=== PATIENT | female | born 1995 | race Caucasian/White ===

== ENCOUNTER 2016-08-16 19:21 | Emergency (ER) | payer BC ==
[2016-08-16 20:14] VITALS: BP 153/104
--- NOTE | 2016-08-16 20:43 | UC ---
Abdominal Pain Female HPI - HPI Summary HPI Summary: The patient comes in today for: 1. Epigastric abdominal pain: Onset: 20 hours ago. Palliative/provocative: Nothing makes the pain better or worse except movement ( walking) Quality: Sharp, Region: Epigastric area with radiation to the back. Severity: 10/10 but she is not crying. Time: Constant. Associated symptoms: Previous treatment: She has tried [place] and Tums neither which helped. Fevers: None. Vomiting: This morning about 10 times. She last vomited about noon of today. Diarrhea: None. Last bowel movement: 7 hours ago--Green/black color, She states that it was melanotic. Urination: She states that she feels like she has to urinate more often. Previous GI disease: none. * - History of Current Complaint Chief Complaint: UCGI Stated Complaint: STOMACH PAIN Time Seen by Provider: 08/16/16 20:37 Hx Obtained From: Patient Hx Last Menstrual Period: 08/10/16 ?: No Allergies/Adverse Reactions: Allergies Allergy/AdvReac Type Severity Reaction Status Date / Time No Known Allergies Allergy Verified 08/16/16 20:14 Home Medications: Home Medications NK [No Home Medications Reported] 08/16/16 [History Confirmed 08/16/16] PMH/Surg Hx/FS Hx/Imm Hx Previously Healthy: Yes Endocrine History Of: Denies: Diabetes, Thyroid Disease, Hyperthyroidism, Hypothyroidism, Dyslipidemia Cardiovascular History Of: Reports: Hypertension - She states she has a history of elevated blood pressure, but sees no DrVivienne Denies: Cardiac Disorders, Pacemaker/ICD, Myocardial Infarction, Congestive Heart Failure, Atrial Fibrillation, Deep Vein Thrombosis, Bleeding Disorders Respiratory History Of: Denies: COPD, Asthma, Bronchitis, Pneumonia, Pulmonary Embolism GI/ History Of: Denies: Gastroesophageal Reflux, Ulcer, Gastrointestinal Bleed, Gall Bladder Disease, Kidney Stones, Diverticulitis, Renal Disease, Urosepsis Neurological History Of: Denies: TIA, CVA, Dementia, Seizures, Migraine Psychological History Of: Denies: Anxiety, Depression, Bipolar Disorder, Schizophrenia, Post Traumatic Stress Disorder Cancer History Of: Denies: Lung Cancer, Colorectal Cancer, Breast Cancer, Prostate Cancer, Cervical Cancer Other History Of: Negative For: HIV, Hepatitis B, Hepatitis C, Anticoagulant Therapy - Surgical History Surgical History: None - Family History Known Family History: Negative: None, Cardiac Disease, Hypertension - Social History Occupation: Employed Full-time Alcohol Use: Occasionally Substance Use Type: None Smoking Status (MU): Current Every Day Smoker Type: Cigarettes Amount Used/How Often: 1/4 PPD Length of Time of Smoking/Using Tobacco: 3 years Have You Smoked in the Last Year: Yes Household Exposure Type: Cigarettes Review of Systems Constitutional: Negative Skin: Negative Eyes: Negative ENT: Negative Respiratory: Negative Cardiovascular: Negative Gastrointestinal: Abdominal Pain, Vomiting Genitourinary: Negative All Other Systems Reviewed And Are Negative: Yes Physical Exam Triage Information Reviewed: Yes Appearance: Well-Appearing - Just, No Pain Distress, Obese Vital Signs: Initial Vital Signs Temp 98.7 F 08/16/16 20:07 Pulse 78 08/16/16 20:07 Resp 20 08/16/16 20:07 BP 153/104 08/16/16 20:07 Pulse Ox 100 08/16/16 20:07 Vital Signs Reviewed: Yes Eyes: Positive: Conjunctiva Clear. Negative: Discharge ENT: Positive: Hearing grossly normal. Negative: Pharyngeal erythema, Nasal congestion, Nasal drainage, TM bulging, TM dull, TM red, Tonsillar swelling, Tonsillar exudate Dental: Negative: Gross Decay/Caries @, Dental Fracture @ Neck: Positive: Supple, Nontender, No Lymphadenopathy. Negative: Nuchal Rigidity Respiratory: Positive: Chest non-tender, Lungs clear, No respiratory distress, No accessory muscle use. Negative: Crackles, Wheezing Cardiovascular: Positive: RRR, No Murmur Abdomen Description: Positive: Soft. Negative: Nontender - She has tenderness of the epigastric area (the worse) but also has pain of the lower right and left quadrant ==this is lesser pain. There is rebound, but the abdominal exam is difficult due to body habitus., Distended, Guarding Musculoskeletal: Positive: Strength Intact, ROM Intact, No Edema Neurological: Positive: Alert, Muscle Tone Normal Psychological: Positive: Age Appropriate Behavior, Consolable Skin: Negative: rashes, breakdown Abd Pain Female Course/Dx - Course Course Of Treatment: Patient was told I think she should go to the Er for further evaluation and she agreed and will go by private car. - Differential Dx/Diagnosis Differential Diagnosis: Constipation, Pancreatitis Provider Diagnoses: Epigastric pain/ rule out pancreatitis - Physician Notification/Consults Discussed Patient Care With: Dr. Dorman Time Discussed With Above Provider: 20:56 Discharge - Discharge Plan Condition: Stable Disposition: AGAINST MEDICAL ADVICE
== END 2016-08-16 21:02 | disposition left against medical advice (07) ==
LOC: UCEAST 19:21
DX: R10.13 Epigastric pain (principal); I10 Essential (primary) hypertension; E66.9 Obesity, unspecified; F17.210 Nicotine dependence, cigarettes, uncomplicated
CPT/HCPCS: 81003; 99212; G0463

== ENCOUNTER 2016-08-16 22:24 | Emergency (ER) | payer BC ==
[2016-08-16] MEDS ORDERED: NS 0.9% 1000 ML* 1,000 ML IV ONE (23:51)
[2016-08-16] MEDS ORDERED: Ondansetron INJ* 2 MG/ML VIAL IV ONE (23:51)
[2016-08-16] MEDS ORDERED: Morphine INJ* 4 MG/ML 1 ML SYRINGE IV ONE (23:51)
[2016-08-16] MEDS ORDERED: Pantoprazole IV* 40 MG IV ONE (23:52)
[2016-08-17 00:07] LABS: Hematocrit 42 % (35-47); Hemoglobin 13.5 g/dl (12.0-16.0); Mean Corpuscular HGB Conc 32 g/dl (31-36); Mean Corpuscular Hemoglobin 26 pg (27-31); Mean Corpuscular Volume 80 fL (80-97); Mean Platelet Volume 9 um3 (7.4-10.4); Red Cell Distribution Width 14 % (10.5-15)
[2016-08-17 00:19] LABS: Albumin 4.4 g/dL (3.2-5.2); C Reactive Protein 64.54 mg/L (< 5.00); Calcium 9.5 mg/dL (8.6-10.3); EGFR African American 119.5 (>60); EGFR Non-African American 92.9 (>60); Globulin 3.5 g/dL (2-4); Magnesium 1.8 mg/dL (1.9-2.7); Potassium 3.7 mmol/L (3.5-5.0); Total Bilirubin 1.4 mg/dL (0.2-1.0); Total Protein 7.9 g/dL (6.4-8.9)
[2016-08-17 00:21] LABS: Urine Bacteria Absent (Absent); Urine Bilirubin Negative (Negative); Urine Glucose Negative (Negative); Urine Nitrite Negative (Negative)
[2016-08-17] MEDS ORDERED: cefTRIAXone(*) 1 GM in NS 0.9% 50 ML* 50 ML IVPB ONE (01:12)
[2016-08-17] MEDS ORDERED: cefTRIAXone(*) 1 GM ADVAN ONE (02:22)
[2016-08-17] MEDS ORDERED: Iohexol 300* (CONTRAST) 10 ML SDV IV ONE (02:30)
--- NOTE | 2016-08-17 06:41 | ED ---
Joanna Sloan Janilya, scribed for Henrietta Macedo MD on 08/16/16 at 2308 . Abdominal Pain/Female - HPI Summary HPI Summary: A 21 y/o female [facility] presenting w/ a gradual onset of constant abd pain starting last night. Pt kept waking up with severe abd pain. She has not experienced these Sx before. Severity rated 10/10 when it first started 4/10 severity. Lying down pt feels cramped back pain bilaterally. Pt reports difficulty passing stool, chills, nausea. Pt was seen at [facility] for this CC and was sent here to r/o kidney stone. LNMP 08/05 PMHx HTN - History of Current Complaint Chief Complaint: EDAbdPain Stated Complaint: ABD PAIN/SENT FROM [facility] Time Seen by Provider: 08/16/16 22:58 Hx Obtained From: Patient Hx Last Menstrual Period: 08/10/16 Onset/Duration: Gradual Onset, Lasting Days, Still Present Timing: Constant Severity Initially: Moderate Severity Currently: Moderate Pain Intensity: 10 Pain Scale Used: 0-10 Numeric Location: Diffuse Radiates: No Aggravating Factor(s): Nothing Alleviating Factor(s): Nothing Allergies/Adverse Reactions: Allergies Allergy/AdvReac Type Severity Reaction Status Date / Time No Known Allergies Allergy Verified 08/16/16 22:37 PMH/Surg Hx/FS Hx/Imm Hx Previously Healthy: Yes Endocrine/Hematology History: Denies: Hx Anticoagulant Therapy, Hx Diabetes, Hx Thyroid Disease Cardiovascular History: Reports: Hx Hypertension - She states she has a history of elevated blood pressure, but sees no Denies: Hx Atrial Fibrillation, Hx Congestive Heart Failure, Hx Deep Vein Thrombosis, Hx Myocardial Infarction, Hx Pacemaker/ICD Respiratory History: Denies: Hx Asthma, Hx Chronic Obstructive Pulmonary Disease (COPD), Hx Lung Cancer, Hx Pneumonia, Hx Pulmonary Embolism GI History: Denies: Hx Gall Bladder Disease, Hx Gastroesophageal Reflux Disease, Hx Gastrointestinal Bleed, Hx Ulcer, Hx Urosepsis History: Reports: Other Problems/Disorders - Hx of UTI Denies: Hx Kidney Stones, Hx Renal Disease Musculoskeletal History: Denies: Hx Arthritis, Hx Rheumatoid Arthritis, Hx Back Problems, Hx Bursitis , Hx Congenital Bone Abnormalities, Hx Fibromyalgia, Hx Gout, Hx Orthopedic Injury, Hx Osteoporosis, Hx Scoliosis, Hx Tendonitis, Other Musculoskeletal History Sensory History: Denies: Hx Cataracts, Hx Contacts or Glasses, Hx Eye Injury, Hx Eye Prosthesis, Hx Glaucoma, Hx Legally Blind, Hx Macular Degeneration, Hx Vision Problem, Hx Deafness, Hx Hearing Aid, Hx Hearing Problem, Other Sensory Impairments Opthamlomology History: Denies: Hx Cataracts, Hx Contacts or Glasses, Hx Eye Injury, Hx Eye Prosthesis, Hx Glaucoma, Hx Legally Blind, Hx Macular Degeneration, Hx Vision Problem, Other Sensory Impairments Neurological History: Denies: Hx CVA, Hx Dementia, Hx Developmental Delay, Hx Headaches, Hx Migraine, Hx Nerve Disease, Hx Peripheral Neuropathy, Hx Seizures, Hx Spinal Cord Injury, Hx Transient Ischemic Attacks (TIA), Other Neuro Impairments/ Disorders Psychiatric History: Denies: Hx Anxiety, Hx Attention Deficit Hyperactivity Disorder, Hx Autism, Hx Eating Disorder, Hx Oppositional [place] Disorder, Hx Depression, Hx Panic Disorder, Hx Post Traumatic Stress Disorder, Hx Inpatient Treatment, Hx Community Mental Health Tx, Hx Schizophrenia, Hx Bipolar Disorder, Hx Suicide Attempt, Hx of Violent Episodes Against Others, Hx Substance Abuse, Other Psychiatric Issues/Disorders - Immunization History Date of Tetanus Vaccine: PT STATES UNSURE. Date of Influenza Vaccine: NONE Infectious Disease History: No Infectious Disease History: Denies: Hx Clostridium Difficile, Hx Hepatitis, Hx Human Immunodeficiency Virus (HIV), Hx of Known/Suspected MRSA, Hx Shingles, Hx Tuberculosis, Hx Known/ Suspected VRE, Hx Known/Suspected VRSA, History Other Infectious Disease, Traveled Outside the [place] in Last 30 Days - Family History Known Family History: Positive: Hypertension Negative: None, Cardiac Disease - Social History Alcohol Use: Occasionally Substance Use Type: Reports: None Smoking Status (MU): Current Every Day Smoker Type: Cigarettes Amount Used/How Often: 1/4 PPD Length of Time of Smoking/Using Tobacco: 3 years Have You Smoked in the Last Year: Yes Review of Systems Positive: Chills Positive: Abdominal Pain, Nausea, Other - difficulty passing stool All Other Systems Reviewed And Are Negative: Yes Physical Exam Triage Information Reviewed: Yes Vital Signs On Initial Exam: Initial Vitals Temp Pulse Resp BP Pulse Ox 98.2 F 85 14 156/87 100 08/16/16 22:35 08/16/16 22:35 08/16/16 22:35 08/16/16 22:35 08/16/16 22:35 Vital Signs Reviewed: Yes Appearance: Positive: Well-Appearing, No Pain Distress Skin: Positive: Warm, Skin Color Reflects Adequate Perfusion Eyes: Positive: EOMI, LUIS ENT: Positive: Pharynx normal, TMs normal Neck: Positive: Supple, Nontender Respiratory/Lung Sounds: Positive: Clear to Auscultation, Breath Sounds Present. Negative: Rales, Rhonchi, Wheezes Cardiovascular: Positive: RRR. Negative: Murmur, Rub, Other - no gallops Abdomen Description: Positive: Soft. Negative: Nontender, Distended, Guarding, Other: - No rebound. Tenderness of epigastric region and RUQ. Bowel Sounds: Positive: Present Musculoskeletal: Positive: Strength/ROM Intact. Negative: Edema Left, Edema Right Neurological: Positive: Sensory/Motor Intact, Alert, Oriented to Person Place, Time, CN Intact II-III Psychiatric: Positive: Affect/Mood Appropriate Diagnostics - Vital Signs Vital Signs Temp Pulse Resp BP Pulse Ox 08/16/16 22:35 98.2 F 85 14 156/87 100 - Laboratory Lab Results: Lab Results 08/16/16 08/16/16 08/16/16 Range/Units 23:00 23:00 23:35 WBC 18.0 H (3.5-10.8) 10^3/ul RBC 5.20 (4.0-5.4) 10^6/ul Hgb 13.5 (12.0-16.0) g/dl Hct 42 (35-47) % MCV 80 (80-97) fL MCH 26 L (27-31) pg MCHC 32 (31-36) g/dl RDW 14 (10.5-15) % Plt Count 237 (150-450) 10^3/ul MPV 9 (7.4-10.4) um3 Neut % (Auto) 82.4 (38-83) % Lymph % (Auto) 11.5 L (25-47) % [place] % (Auto) 5.0 (1-9) % Eos % (Auto) 0.9 (0-6) % Baso % (Auto) 0.2 (0-2) % Absolute Neuts (auto) 14.8 H (1.5-7.7) 10^3/ul Absolute Lymphs (auto) 2.1 (1.0-4.8) 10^3/ul Absolute Monos (auto) 0.9 H (0-0.8) 10^3/ul Absolute Eos (auto) 0.2 (0-0.6) 10^3/ul Absolute Basos (auto) 0 (0-0.2) 10^3/ul Absolute Nucleated RBC 0.01 10^3/ul Nucleated RBC % 0 Sodium 136 (133-145) mmol/L Potassium 3.7 (3.5-5.0) mmol/L Chloride 100 L (101-111) mmol/L Carbon Dioxide 24 (22-32) mmol/L Anion Gap 12 H (2-11) mmol/L BUN 10 (6-24) mg/dL Creatinine 0.77 (0.51-0.95) mg/dL Est GFR ( Amer) 119.5 (>60) Est GFR (Non-Af Amer) 92.9 (>60) BUN/Creatinine Ratio 13.0 (8-20) Glucose 108 H (70-100) mg/dL Calcium 9.5 (8.6-10.3) mg/dL Magnesium 1.8 L (1.9-2.7) mg/dL Total Bilirubin 1.40 H (0.2-1.0) mg/dL AST 10 L (13-39) U/L ALT 16 (7-52) U/L Alkaline Phosphatase 95 (34-104) U/L C-Reactive Protein 64.54 H (< 5.00) mg/L Total Protein 7.9 (6.4-8.9) g/dL Albumin 4.4 (3.2-5.2) g/dL Globulin 3.5 (2-4) g/dL Albumin/Globulin Ratio 1.3 (1-3) Lipase 16 (11.0-82.0) U/L Beta HCG, Quant 1.48 mIU/mL Urine Color Yellow Urine Appearance Cloudy Urine pH 6.0 (5-9) Ur Specific [place] 1.012 (1.010-1.030) Urine Protein Negative (Negative) Urine Ketones Negative (Negative) Urine Blood Negative (Negative) Urine Nitrate Negative (Negative) Urine Bilirubin Negative (Negative) Urine Urobilinogen Negative (Negative) Ur Leukocyte Esterase 2+ H (Negative) Urine WBC (Auto) 2+(11-20/hpf) H (Absent) Urine RBC (Auto) 2+(6-10/hpf) H (Absent) Ur Squamous Epith Cells Present H (Absent) Urine Bacteria Absent (Absent) Urine Glucose Negative (Negative) Result Diagrams: 08/16/16 23:00 08/16/16 23:00 Lab Statement: Any lab studies that have been ordered have been reviewed, and results considered in the medical decision making process. - CT abd/pel CT Interpretation: No Acute Changes - No bowel obstrucition, colitis, free fluid or free air. Normal appendix. Unremarkable pancreas, kidneys, and gallbladder. Minimal central mesenteric fat hazziness appearing possibly edema or mesenteritis. CT Interpretation Completed By: Radiologist - Ultrasound No standard instances Ultrasound Interpretation: Positive (See Comments) - Borderline hepatomegaly. Coarse liver echotexture, possibly steatosis. Unremarkable gallbladder and visualized pancreas. Small nonobstucting stones bilateral kidneys. No biliary dilatation. Ultrasound Interpretation Completed By: Radiologist - EKG 2352 Cardiac Rate: NL - 73 bpm EKG Rhythm: Sinus Rhythm ST Segment: Normal Abdominal Pain Fem Course/Dx - Course Course Of Treatment: A 21 y/o female [facility] presenting w/ a gradual onset of constant abd pain starting last night. Pt kept waking up with severe abd pain. She has not experienced these Sx before. Severity rated 10/10 when it first started 4/10 severity. Lying down pt feels cramped back pain bilaterally. Pt reports difficulty passing stool, chills, nausea. Pt was seen at [facility] for this CC and was sent here to r/o kidney stone. wbc of 18k,ua is positive, ct shows mild mesenteric edema treating uti with cipro after dose of ceftriaxone here. Of note pt has been very stable here. LNMP 08/05. PMHx HTN - Diagnoses Provider Diagnoses: Abdominal pain, UTI (urinary tract infection) Discharge - Discharge Plan Condition: Stable Disposition: HOME Prescriptions: Ciprofloxacin TAB* [Cipro 500 MG TAB*] 500 mg PO BID #14 tab Hydrocodone-Acetaminophen [[place] 5-325 mg] 1 tab PO Q6HR #14 tab MDD 4 Ondansetron TAB* [Zofran 4 MG Tab*] 4 mg PO Q6H PRN #14 tab PRN Reason: Nausea Patient Education Materials: Urinary Tract Infection in Women (ED), Abdominal Pain (ED) Referrals: No Primary Care Phys,NOPCP [Primary Care Provider] - The documentation as recorded by the scribe, Baizack,Janilya accurately reflects the service I personally performed and the decisions made by me, Henrietta Macedo MD.
[2016-08-17 06:53] VITALS: BP 146/96
--- NOTE | 2016-08-17 08:39 | RAD ---
Indication: Epigastric pain. Trace blood in urine. Morbid obesity. Comparison: Subsequent August 17, 2016 CT. Technique: RIGHT upper quadrant ultrasound. Report: 17.9 cm cephalocaudal liver is increased in echogenicity consistent with fatty infiltration. No focal hepatic lesions or biliary dilatation. Appropriate direction flow documented in the portal and hepatic veins. 2.7 mm common bile duct. Adequately distended gallbladder with normal 2.2 mm wall is without pathologic finding. The pancreatic tail is largely obscured due to bowel gas with the visualized pancreas unremarkable. Negative for ascites. 10.8 x 5.8 x 4.5 cm RIGHT kidney demonstrates normal cortical echogenicity. No focal renal lesions, definitive stones, or hydronephrosis.. IMPRESSION: 1. Fatty infiltration of the liver. 2. Negative for gallbladder pathology. 3. Negative for RIGHT hydronephrosis.
--- NOTE | 2016-08-17 09:28 | RAD ---
INDICATION: Epigastric pain. Elevated white blood cell count. Previous kidney infection. COMPARISON: RIGHT upper quadrant ultrasound August 16, 2016. March 13, 2015 CT. TECHNIQUE: Multidetector CT images were obtained from the lung bases to the ischial tuberosities with 150 mL Omnipaque 300 IV and oral contrast. Multiplanar reformation. REPORT: Minimal dependent LEFT basilar subsegmental atelectasis. Unremarkable liver, gallbladder, pancreas, spleen. Small splenule approximates the anterior inferior margin of the dominant spleen. Reference axial images 40-46 and coronal images 56-58 there is suggestion of mild mucosal fold thickening at the distal second and proximal third segments of the duodenum. No significant associated perienteric inflammatory change. Negative for resulting obstruction. Negative for CT abnormality of the small bowel, infra cecal appendix, colon. Negative for perienteric inflammatory change, ascites, free air, hernias. Normal adrenal glands. Unremarkable kidneys with symmetric nephrograms and pyelograms. Unremarkable nondilated ureters and the partially distended urinary bladder. Unremarkable anteverted uterus and adnexal regions. Negative for lymphadenopathy. Normal diameter abdominal aorta and iliac arteries. Physiologic distention of the IVC. Negative for suspicious osseous lesions. IMPRESSION: 1. Normal appendix documented. 2. Suggestion of mucosal fold thickening at the second and third segments of the duodenum concerning for potential duodenitis. No discrete ulcer, significant perienteric inflammatory change, or extra enteric gas evident. 3. Negative for obstructive uropathy. Results discussed with charge nurse Ignacio 08/17/2016 8:47 AM EDT
--- NOTE | 2016-08-19 09:02 | PN ---
Progress Note - Progress Note Note: Urine Culture grew Group B strep: Patient placed on Cipro. Cipro appropriate to Group B. Nothing further at this time. Will await sensitivities. Lilia Coreas PA-C
== END 2016-08-17 06:45 | disposition home or self-care (01) ==
LOC: ED 22:24
DX: N39.0 Urinary tract infection, site not specified (principal); R10.9 Unspecified abdominal pain; R11.0 Nausea; F17.210 Nicotine dependence, cigarettes, uncomplicated
CPT/HCPCS: 36415; 74177; 76705; 80053; 81003; 81015; 83690; 83735; 84702; 85025; 86140; 87077; 87086; 93005; 96374; 96375; 99283; J0696; J2270; J2405; Q9967

== ENCOUNTER 2016-08-18 19:07 | Emergency (ER) | payer BC ==
[2016-08-18] MEDS ORDERED: Pantoprazole IV* 80 MG in NS 0.9% 250 ML* 250 ML IVPB ONE (19:35)
[2016-08-18] MEDS ORDERED: Al Hydrox/Mg Hydrox/Simet LIQ* 30 ML UDC PO ONE (19:36)
[2016-08-18] MEDS ORDERED: Morphine INJ* 4 MG/ML 1 ML SYRINGE IV ONE (19:36)
[2016-08-18] MEDS ORDERED: Lidocaine 2% VISCOUS* 15 ML UDC PO ONE (19:36)
--- NOTE | 2016-08-18 20:04 | ED ---
Abdominal Pain/Female - HPI Summary HPI Summary: 21F presents with epigastric pain since Thursday that has been getting worst. Her pain is in the center of her upper abdomen and has been getting worst. She describes the pain as sharp and that is often radiates to her back. She states she has not been able to eat anything and that when she does it makes the pain worst. She denies any dark tarry stool. She was seen on 08/16 and was diagnosed with UTI. Her urine cultures grew normal belinda and strept B. She had an u/s done which was normal and CT shows duodenitis. She is not taking any acid suppressors. She does not take any NSAIDS or drink ETOH often. She denies any previous abdominal surgeries or history of GI issues. She denies any chest pain or SOB. She denies any diarrhea or constipation. She denies any urinary frequency, urgency, hematuria, flank pain, or dysuria. - History of Current Complaint Chief Complaint: EDUrogenitalProblems Stated Complaint: ABD PAIN Time Seen by Provider: 08/18/16 19:19 Hx Last Menstrual Period: 08/10/16 Pain Intensity: 10 Allergies/Adverse Reactions: Allergies Allergy/AdvReac Type Severity Reaction Status Date / Time No Known Allergies Allergy Verified 08/16/16 22:37 PMH/Surg Hx/FS Hx/Imm Hx Endocrine/Hematology History: Denies: Hx Anticoagulant Therapy, Hx Diabetes, Hx Thyroid Disease Cardiovascular History: Reports: Hx Hypertension - She states she has a history of elevated blood pressure, but sees no Dr. Denies: Hx Atrial Fibrillation, Hx Congestive Heart Failure, Hx Deep Vein Thrombosis, Hx Myocardial Infarction, Hx Pacemaker/ICD Respiratory History: Denies: Hx Asthma, Hx Chronic Obstructive Pulmonary Disease (COPD), Hx Lung Cancer, Hx Pneumonia, Hx Pulmonary Embolism GI History: Denies: Hx Gall Bladder Disease, Hx Gastroesophageal Reflux Disease, Hx Gastrointestinal Bleed, Hx Ulcer, Hx Urosepsis History: Reports: Other Problems/Disorders - Hx of UTI Denies: Hx Kidney Stones, Hx Renal Disease Musculoskeletal History: Denies: Hx Arthritis, Hx Rheumatoid Arthritis, Hx Back Problems, Hx Bursitis , Hx Congenital Bone Abnormalities, Hx Fibromyalgia, Hx Gout, Hx Orthopedic Injury, Hx Osteoporosis, Hx Scoliosis, Hx Tendonitis, Other Musculoskeletal History Sensory History: Denies: Hx Cataracts, Hx Contacts or Glasses, Hx Eye Injury, Hx Eye Prosthesis, Hx Glaucoma, Hx Legally Blind, Hx Macular Degeneration, Hx Vision Problem, Hx Deafness, Hx Hearing Aid, Hx Hearing Problem, Other Sensory Impairments Opthamlomology History: Denies: Hx Cataracts, Hx Contacts or Glasses, Hx Eye Injury, Hx Eye Prosthesis, Hx Glaucoma, Hx Legally Blind, Hx Macular Degeneration, Hx Vision Problem, Other Sensory Impairments Neurological History: Denies: Hx CVA, Hx Dementia, Hx Developmental Delay, Hx Headaches, Hx Migraine, Hx Nerve Disease, Hx Peripheral Neuropathy, Hx Seizures, Hx Spinal Cord Injury, Hx Transient Ischemic Attacks (TIA), Other Neuro Impairments/ Disorders Psychiatric History: Denies: Hx Anxiety, Hx Attention Deficit Hyperactivity Disorder, Hx Autism, Hx Eating Disorder, Hx Oppositional [place] Disorder, Hx Depression, Hx Panic Disorder, Hx Post Traumatic Stress Disorder, Hx Inpatient Treatment, Hx Community Mental Health Tx, Hx Schizophrenia, Hx Bipolar Disorder, Hx Suicide Attempt, Hx of Violent Episodes Against Others, Hx Substance Abuse, Other Psychiatric Issues/Disorders - Immunization History Date of Tetanus Vaccine: PT STATES UNSURE. Date of Influenza Vaccine: NONE Infectious Disease History: No Infectious Disease History: Denies: Hx Clostridium Difficile, Hx Hepatitis, Hx Human Immunodeficiency Virus (HIV), Hx of Known/Suspected MRSA, Hx Shingles, Hx Tuberculosis, Hx Known/ Suspected VRE, Hx Known/Suspected VRSA, History Other Infectious Disease, Traveled Outside the [place] in Last 30 Days - Family History Known Family History: Positive: Hypertension Negative: None, Cardiac Disease - Social History Alcohol Use: Occasionally Substance Use Type: Reports: Marijuana Substance Use Comment - Amount & Last Used: today Smoking Status (MU): Current Every Day Smoker Type: Cigarettes Amount Used/How Often: 1/4 PPD Length of Time of Smoking/Using Tobacco: 3 years Have You Smoked in the Last Year: Yes Review of Systems Negative: Fever Negative: Chest Pain Negative: Shortness Of Breath Positive: Abdominal Pain - epigastric. Negative: Vomiting, Diarrhea, Nausea All Other Systems Reviewed And Are Negative: Yes Physical Exam Triage Information Reviewed: Yes Vital Signs On Initial Exam: Initial Vitals Temp Pulse Resp BP Pulse Ox 97.6 F 76 18 159/100 100 08/18/16 19:09 08/18/16 19:09 08/18/16 19:09 08/18/16 19:09 08/18/16 19:09 Vital Signs Reviewed: Yes Appearance: Positive: Pain Distress Skin: Positive: Warm, Dry Head/Face: Positive: Normal Head/Face Inspection Eyes: Positive: Normal, Conjunctiva Clear Respiratory/Lung Sounds: Positive: Clear to Auscultation, Breath Sounds Present Cardiovascular: Positive: Normal, RRR Abdomen Description: Positive: Soft, Other: - moderate tenderness in center of epigastric, no rebound, neg murrays Bowel Sounds: Positive: Present Diagnostics - Vital Signs Vital Signs Temp Pulse Resp BP Pulse Ox 08/18/16 19:18 98.6 F 75 16 132/82 98 08/18/16 19:09 97.6 F 76 18 159/100 100 - Laboratory Result Diagrams: 08/18/16 20:23 08/18/16 20:23 Lab Statement: Any lab studies that have been ordered have been reviewed, and results considered in the medical decision making process. Abdominal Pain Fem Course/Dx - Course Course Of Treatment: 21F presents with epigastric pain since thursday. states pain has been getting worst. Was seen here on Thursday and had CT which showed duodenitis and normal gallbladder u/s. labs had 18 white count then and 10 white now. was sent home on cipro for uti and urine culture only grew strept B and normal belinda and has no flank pain now or n/v so do not suspect pyelo. was not started on PPI at d/c. denies any tarry stool and h/h normal. labs comparable to previous labs on thursday, u/a still has leuko has 4 days more left of antibiotic so will have continue cipro and if senstivities come back different will have switch. will add omeprazole 20mg and treat as duodenal ulcer and have follow up with GI. patient understands and agrees with plan - Diagnoses Differential Diagnosis: Positive: Pancreatitis, Peptic Ulcer Disease, Other - duodenitis Provider Diagnoses: Epigastric pain Discharge - Discharge Plan Condition: Good Disposition: HOME Prescriptions: Al Hydrox/Mg Hydrox/Simet LIQ* [Maalox Plus*] 30 ml PO Q6H PRN #420 ml PRN Reason: Dyspepsia HYDROcodone/ACETAMIN 5-325 MG* [[place] 5-325 TAB*] 1 tab PO Q6H PRN #12 tab MDD 4 PRN Reason: Pain Omeprazole CAP* [Prilosec CAP* 20 MG] 20 mg PO DAILY #28 cap. Ondansetron ODT TAB* [Zofran 4 MG Odt TAB*] 4 mg PO Q6H PRN #20 tab.odt PRN Reason: Nausea Patient Education Materials: Duodenitis (ED) Forms: *Work Release Referrals: Kai Gutierrez MD [Medical Doctor] - [facility] [Outside] Additional Instructions: Take omeprazole 30 mins to an hour before eating each morning Take Zofran every 6 hours for nausea Take 1 tablespoon of maalox up to twice a day for acid reflux symptoms Take Tylenol for pain, use narcotic for break through pain Avoid hot spicy food, ibuprofen, and alcohol Follow up with GI Return to ED if develop any new or worsening symptoms
[2016-08-18] MEDS ORDERED: NS 0.9% 1000 ML* 1,000 ML IV ONE (20:22)
[2016-08-18 20:40] LABS: Hematocrit 41 % (35-47); Hemoglobin 13.6 g/dl (12.0-16.0); Mean Corpuscular HGB Conc 33 g/dl (31-36); Mean Corpuscular Hemoglobin 26 pg (27-31); Mean Corpuscular Volume 80 fL (80-97); Mean Platelet Volume 8 um3 (7.4-10.4); Red Blood Count 5.19 10^6/ul (4.0-5.4); Red Cell Distribution Width 13 % (10.5-15)
[2016-08-18 20:54] LABS: Albumin 4.3 g/dL (3.2-5.2); BUN/Creatinine Ratio 12.2 (8-20); Calcium 9.5 mg/dL (8.6-10.3); EGFR African American 125.1 (>60); EGFR Non-African American 97.3 (>60); Globulin 3.4 g/dL (2-4); Total Bilirubin 0.8 mg/dL (0.2-1.0); Total Protein 7.7 g/dL (6.4-8.9)
[2016-08-18 20:55] LABS: Budding Yeast Present (Absent); Urine Bacteria Absent (Absent); Urine Bilirubin Negative (Negative); Urine Glucose Negative (Negative); Urine Nitrite Negative (Negative)
--- NOTE | 2016-08-18 20:56 | RAD ---
HISTORY: Abdominal pain COMPARISONS: CT dated August 17, 2016 VIEWS: Frontal supine and upright views of the abdomen. FINDINGS: BOWEL: There is a nonobstructive bowel gas pattern. There is a moderate amount of stool within the colon. CALCULI: There are no abnormal calculi. BONES AND SOFT TISSUES: There are no osseous abnormalities. OTHER FINDINGS: The lung bases are clear. There is no subphrenic gas. IMPRESSION: NONOBSTRUCTIVE BOWEL GAS PATTERN. NO SUBPHRENIC GAS.
[2016-08-18] MEDS ORDERED: Pantoprazole IV* 40 MG IV ONE (21:35)
[2016-08-18 23:24] VITALS: BP 130/55
--- NOTE | 2016-08-21 12:54 | PN ---
Progress Note - Progress Note Note: Patient diagnosed with duodenitis. Urine culture grew gerson albicans 25-50,000. No treatment is required at this time due to the amount grew. Spoke with patient at 12:55pm who states her symptoms have greatly improved and is no longer having any. No further change needed at this time.
== END 2016-08-18 23:22 | disposition home or self-care (01) ==
LOC: ED 19:07
DX: R10.13 Epigastric pain (principal); F17.210 Nicotine dependence, cigarettes, uncomplicated
CPT/HCPCS: 36415; 74020; 80053; 81003; 81015; 83690; 85025; 86141; 87086; 87106; 96374; 96375; 99283; A9270-GY; J2270

== ENCOUNTER → 2016-08-23 15:56 | Emergency (ER) | payer BC ==
[~2016-08-23 15:56] MED LIST: hydrOXYzine HCL TAB* 25 MG PO ONE; hydrOXYzine HCL TAB* 50 MG PO ONE; methylPREDNISolone SOD SUCC* 125 MG 2 ML VIAL IV ONE
--- NOTE | 2016-08-23 17:46 | ED ---
Skin Complaint - HPI Summary HPI Summary: Patient presents to ED with CC of skin lesions severely over legs bilaterally, lower abdomen at waistline and now mildlly affecting upper extremities. There is palpable purpura measuring 0.3 to 1 cm diameter, and petechiae that are non- blanching, slightly pruritic and painful. The lesions over the legs coalesce but do not have ulcerations or hemorrhagic bullae. She states she thought it was folliculitis, but continued to worsen. Symptoms started 3 days ago the same day she began Omeprazole, which she has never taken before. However, she was placed on Ciprofloxacin for a UTI 6 days prior to that, but does not recall if she has ever had Cipro before. She was seen at and was prescribed Keflex for a skin infection. There are no pustules, drainage or signs of infection. Patient is tearful on examination and history is difficult. She denies airway compromise, difficulty breathing, chest pain, urinary symptoms or abdominal pain. She denies other medication changes, lotions, soaps or changes of detergents. - History of Current Complaint Chief Complaint: EDRashSkinAbscess Time Seen by Provider: 08/23/16 17:00 Stated Complaint: RASH Hx Obtained From: Patient Hx Last Menstrual Period: 08/10/16 Onset/Duration: Started Days Ago - 3 days ago Skin Exposure Onset/Duration: Days Ago Timing: Constant Onset Severity: Moderate Current Severity: Severe Pain Intensity: 10 Pain Scale Used: 0-10 Numeric Skin Location: Diffuse Character: Swelling, Pruritus, Pain, Redness, Raised Aggravating Symptom(s): Nothing Alleviating Symptom(s): Nothing Associated Signs & Symptoms: Negative Related History: Recent change in medication - Allergy/Home Medications Allergies/Adverse Reactions: Allergies Allergy/AdvReac Type Severity Reaction Status Date / Time No Known Allergies Allergy Verified 08/16/16 22:37 PMH/Surg Hx/FS Hx/Imm Hx Previously Healthy: Yes Endocrine/Hematology History: Denies: Hx Anticoagulant Therapy, Hx Diabetes, Hx Thyroid Disease Cardiovascular History: Reports: Hx Hypertension - She states she has a history of elevated blood pressure, but sees no Denies: Hx Atrial Fibrillation, Hx Congestive Heart Failure, Hx Deep Vein Thrombosis, Hx Myocardial Infarction, Hx Pacemaker/ICD Respiratory History: Denies: Hx Asthma, Hx Chronic Obstructive Pulmonary Disease (COPD), Hx Lung Cancer, Hx Pneumonia, Hx Pulmonary Embolism GI History: Denies: Hx Gall Bladder Disease, Hx Gastroesophageal Reflux Disease, Hx Gastrointestinal Bleed, Hx Ulcer, Hx Urosepsis History: Reports: Other Problems/Disorders - Hx of UTI Denies: Hx Kidney Stones, Hx Renal Disease Musculoskeletal History: Denies: Hx Arthritis, Hx Rheumatoid Arthritis, Hx Back Problems, Hx Bursitis , Hx Congenital Bone Abnormalities, Hx Fibromyalgia, Hx Gout, Hx Orthopedic Injury, Hx Osteoporosis, Hx Scoliosis, Hx Tendonitis, Other Musculoskeletal History Sensory History: Denies: Hx Cataracts, Hx Contacts or Glasses, Hx Eye Injury, Hx Eye Prosthesis, Hx Glaucoma, Hx Legally Blind, Hx Macular Degeneration, Hx Vision Problem, Hx Deafness, Hx Hearing Aid, Hx Hearing Problem, Other Sensory Impairments Opthamlomology History: Denies: Hx Cataracts, Hx Contacts or Glasses, Hx Eye Injury, Hx Eye Prosthesis, Hx Glaucoma, Hx Legally Blind, Hx Macular Degeneration, Hx Vision Problem, Other Sensory Impairments Neurological History: Denies: Hx CVA, Hx Dementia, Hx Developmental Delay, Hx Headaches, Hx Migraine, Hx Nerve Disease, Hx Peripheral Neuropathy, Hx Seizures, Hx Spinal Cord Injury, Hx Transient Ischemic Attacks (TIA), Other Neuro Impairments/ Disorders Psychiatric History: Denies: Hx Anxiety, Hx Attention Deficit Hyperactivity Disorder, Hx Autism, Hx Eating Disorder, Hx Oppositional [place] Disorder, Hx Depression, Hx Panic Disorder, Hx Post Traumatic Stress Disorder, Hx Inpatient Treatment, Hx Community Mental Health Tx, Hx Schizophrenia, Hx Bipolar Disorder, Hx Suicide Attempt, Hx of Violent Episodes Against Others, Hx Substance Abuse, Other Psychiatric Issues/Disorders - Immunization History Date of Tetanus Vaccine: PT STATES UNSURE. Date of Influenza Vaccine: NONE Hx Pertussis Vaccination: No Immunizations Up to Date: No Infectious Disease History: No Infectious Disease History: Denies: Hx Clostridium Difficile, Hx Hepatitis, Hx Human Immunodeficiency Virus (HIV), Hx of Known/Suspected MRSA, Hx Shingles, Hx Tuberculosis, Hx Known/ Suspected VRE, Hx Known/Suspected VRSA, History Other Infectious Disease, Traveled Outside the [place] in Last 30 Days - Family History Known Family History: Positive: Hypertension Negative: None, Cardiac Disease - Social History Occupation: Unemployed Lives: With Family Alcohol Use: Occasionally Hx Substance Use: Yes Substance Use Type: Reports: Marijuana Substance Use Comment - Amount & Last Used: today Hx Tobacco Use: Yes Smoking Status (MU): Current Every Day Smoker Type: Cigarettes Amount Used/How Often: 1/4 PPD Length of Time of Smoking/Using Tobacco: 3 years Have You Smoked in the Last Year: Yes Review of Systems Constitutional: Negative Eyes: Negative Cardiovascular: Negative Respiratory: Negative Positive: no symptoms reported, see HPI Musculoskeletal: Negative Positive: Rash Neurological: Negative Positive: Anxious All Other Systems Reviewed And Are Negative: Yes Physical Exam Triage Information Reviewed: Yes Vital Signs On Initial Exam: Initial Vitals Temp Pulse Resp BP Pulse Ox 98.1 F 104 16 156/99 100 08/23/16 16:12 08/23/16 16:12 08/23/16 16:12 08/23/16 16:12 08/23/16 16:12 Completion Of Physical Exam Limited Due To: Dementia Appearance: Positive: Well-Appearing, Well-Nourished Skin: Positive: Warm, Other - pruritic and painful purpura and petechial non- blanchable lesions coalescing over legs bilaterally and lower abdomen around waistline. Head/Face: Positive: Normal Head/Face Inspection Eyes: Positive: EOMI, LUIS, Conjunctiva Clear Neck: Positive: Supple, No Lymphadenopathy Respiratory/Lung Sounds: Positive: Clear to Auscultation, Breath Sounds Present Cardiovascular: Positive: Normal, RRR Musculoskeletal: Positive: Normal, Strength/ROM Intact Neurological: Positive: Normal, Sensory/Motor Intact Psychiatric: Positive: Normal AVPU Assessment: Alert Diagnostics - Vital Signs Vital Signs Temp Pulse Resp BP Pulse Ox 08/23/16 16:12 98.1 F 104 16 156/99 100 - Laboratory Result Diagrams: 08/23/16 17:40 08/23/16 17:40 Lab Statement: Any lab studies that have been ordered have been reviewed, and results considered in the medical decision making process. Course/Dx - Course Course Of Treatment: Labs drawn. WNL. Hydroxyzine and prednisone given in ED with no relief. Patient is very upset and requesting to stay, however provider explained there would not be a change in course of treatment to admit her compared to home medications. 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 There are no subcutaneal nodules, hemorrhagic bullae or necrotizing ulcerations to suggest SJS or vasculitis. Recent medication changes suggest drug eruption. 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 Will stop offending agent, and patient will take hydroxyzine and prednisone x 5 days. Also recommended ice packs, wrapping legs and elevation. Note given for work for 5 days off. She will follow up with PCP for possible further evaluation or labwork to assure reduction in symptoms. - Differential Diagnoses - Skin Complaint Differential Diagnoses: Drug Rash, Drug Intoxication, Medication; Adverse Reaction - Diagnoses Provider Diagnoses: Small vessel vasculitis, Drug-induced hypersensitivity reaction Discharge - Discharge Plan Condition: Stable Disposition: HOME Prescriptions: hydrOXYzine HCL TAB* [Atarax 25 MG TAB*] 25 mg PO QID PRN #20 tab MDD 4 PRN Reason: Itching predniSONE TAB* [Deltasone TAB*] 50 mg PO DAILY #5 tab MDD 1 Patient Education Materials: Acute Rash (ED), Purpura (ED), Cold Compress or Soak (ED) Forms: *Work Release Referrals: Katja Best MD [Primary Care Provider] - Additional Instructions: Follow up with PCP next week. Take Hydroxyzine up to 4 times daily for itching and pain. Take Benadryl 50mg at bedtime. Prednisone 50mg in the morning for 5 days Cold compresses over abdomen and both legs with elevation several times per day. Off work for 5 days. 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 However, some of these patients experience bothersome pruritus, pain, or local edema, and may benefit from interventions that improve these symptoms. Clinical experience suggests that the following measures can be beneficial: Rest, leg elevation, and compression stockings Disease may be exacerbated by exercise or prolonged maintenance of affected areas in dependent positions [2]. Leg elevation and use of compression stockings may decrease immune complex deposition in the lower extremities, thereby decreasing the progression of vasculitic skin lesions. Nonsteroidal antiinflammatory drugs (NSAIDs) NSAIDs may be useful for pain management. Oral antihistamines Antihistamines may help to suppress pruritus.
[2016-08-23 17:47] LABS: Hematocrit 45 % (35-47); Mean Corpuscular HGB Conc 33 g/dl (31-36); Mean Corpuscular Hemoglobin 27 pg (27-31); Mean Corpuscular Volume 81 fL (80-97); Mean Platelet Volume 9 um3 (7.4-10.4); Red Blood Count 5.62 10^6/ul (4.0-5.4); Red Cell Distribution Width 13 % (10.5-15); White Blood Count 14.8 10^3/ul (3.5-10.8)
[2016-08-23 18:02] LABS: Albumin 4.2 g/dL (3.2-5.2); BUN/Creatinine Ratio 19.5 (8-20); C Reactive Protein 28.86 mg/L (< 5.00); Calcium 9.4 mg/dL (8.6-10.3); Direct Bilirubin 0.1 mg/dL (0.03-0.18); EGFR African American 103.8 (>60); EGFR Non-African American 80.7 (>60); Globulin 3.2 g/dL (2-4); Indirect Bilirubin 0.4 mg/dL (0.3-1.0); Total Bilirubin 0.5 mg/dL (0.2-1.0); Total Protein 7.4 g/dL (6.4-8.9)
[2016-08-23 18:44] LABS: Erythrocyte Sed Rate 13 mm/Hr (0-14)
[2016-08-23 19:33] VITALS: BP 134/102
== END | disposition home or self-care (01) ==
LOC: ED 15:56
DX: T36.8X5A Adverse effect of other systemic antibiotics, initial encounter (principal); L95.9 Vasculitis limited to the skin, unspecified; X58.XXXA Exposure to other specified factors, initial encounter; F17.210 Nicotine dependence, cigarettes, uncomplicated
CPT/HCPCS: 36415; 80053; 82248; 83605; 85025; 85652; 86140; 96374; 99283; A9270-GY; J2930

== ENCOUNTER 2018-01-18 08:23 | Emergency (ER) | payer BC ==
[2018-01-18 08:50] VITALS: BP 144/96
--- NOTE | 2018-01-18 09:54 | UC ---
Complaint Female HPI - HPI Summary HPI Summary: 22 y.o female with no PMH, no medication, had h/o chlaymidia in past, treated. noted partner had burning with urination, has increased vaginal discharge, burning with urination , concerned about STD. denies . 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 + elevated BP - History Of Current Complaint Chief Complaint: UCSTDScreening Stated Complaint: PERSONAL Time Seen by Provider: 01/18/18 09:47 Hx Obtained From: Patient Hx Last Menstrual Period: 12/30/17 ?: No Onset/Duration: Sudden Onset, Lasting Days - x 2 days Timing: Constant Severity Currently: None Pain Intensity: 0 - Allergies/Home Medications Allergies/Adverse Reactions: Allergies Allergy/AdvReac Type Severity Reaction Status Date / Time ciprofloxacin Allergy Rash Verified 01/18/18 08:44 PMH/Surg Hx/FS Hx/Imm Hx Previously Healthy: Yes Other History Of: Negative For: HIV, Hepatitis B, Hepatitis C, Anticoagulant Therapy - Surgical History Surgical History: None - Family History Known Family History: Positive: Hypertension Negative: None, Cardiac Disease - Social History Alcohol Use: Occasionally Substance Use Type: None Substance Use Comment - Amount & Last Used: today Smoking Status (MU): Former Smoker Type: Cigarettes Amount Used/How Often: 1/4 PPD Length of Time of Smoking/Using Tobacco: 3 years Have You Smoked in the Last Year: Yes Household Exposure Type: Cigarettes Review of Systems Genitourinary: Vaginal/Penile Discharge Is Patient Immunocompromised?: No All Other Systems Reviewed And Are Negative: Yes Physical Exam Triage Information Reviewed: Yes Appearance: Well-Appearing, No Pain Distress, Well-Nourished Vital Signs: Initial Vital Signs Temp 97.3 F 01/18/18 08:44 Pulse 68 01/18/18 08:44 Resp 18 01/18/18 08:44 BP 144/96 01/18/18 08:44 Pulse Ox 100 01/18/18 08:44 Vital Signs Reviewed: Yes Eyes: Positive: Conjunctiva Clear Abdomen Description: Positive: Nontender, No Organomegaly, Soft, Bruit. Negative: CVA Tenderness (R), CVA Tenderness (L) Pelvic Exam: Positive: External Exam Normal, Bimanual Exam Normal, No Cerv. Motion Tender, No Masses, Discharge - minimal white discharge, possibly slightly more then normal. Negative: Active Bleeding, Cervicitis, Lesions, Mass , Tender w/ Cervical Motion, Tender Adnexa, Tender Uterus Psychological Exam: Normal Complaint Female Dx - Course Course Of Treatment: Due to possible exposure and partner with symptoms, treatment given at clinic. Cultures sent. Follow up with [facility]. Discussed elevated BP, will follow up with PCP - Differential Dx/Diagnosis Differential Diagnosis/HQI/PQRI: Pelvic Inflammatory Disease, Urinary Tract Infection Provider Diagnoses: STD exposure Discharge - Sign-Out/Discharge Documenting (check all that apply): Patient Departure All imaging exams completed and their final reports reviewed: No Studies - Discharge Plan Condition: Good Disposition: HOME Prescriptions: metroNIDAZOLE [Flagyl 500 MG TAB] 500 mg PO BID #14 tab Patient Education Materials: Ceftriaxone (By injection), Chlamydia (ED), Sexually Transmitted Diseases (ED) Referrals: Katja Best MD [Primary Care Provider] - Additional Instructions: - follow up care with [facility] - Do not have sexual activity until results are back from cultures obtained today - Go to ER with fever, chills, painful urination or pelvic pain - Billing Disposition and Condition Condition: GOOD Disposition: Home
[2018-01-18] MEDS ORDERED: cefTRIAXone VIAL(*) 250 MG VIAL IM ONE (10:01)
[2018-01-18] MEDS ORDERED: Azithromycin TAB* 250 MG PO ONE (10:01)
[2018-01-18] MEDS ORDERED: Lidocaine 1%* 5 ML VIAL INJ ONE (10:19)
--- NOTE | 2018-01-19 10:03 | ED ---
Progress - Progress Note Progress Note: Vaginal swab came back as positive for Gardnerella. Nursing to call the patient to let her know of the infection and the need to start the antibiotic. Plan is to start on Flagyl and I will have sent a prescription in that the patient can pickling grader to treat the Gardnerella. Discharge - Sign-Out/Discharge Documenting (check all that apply): Patient Departure All imaging exams completed and their final reports reviewed: No Studies - Discharge Plan Condition: Good Disposition: HOME Prescriptions: metroNIDAZOLE [Flagyl 500 MG TAB] 500 mg PO BID #14 tab Patient Education Materials: Ceftriaxone (By injection), Chlamydia (ED), Sexually Transmitted Diseases (ED) Referrals: Katja Best MD [Primary Care Provider] - Additional Instructions: - follow up care with [facility] - Do not have sexual activity until results are back from cultures obtained today - Go to ER with fever, chills, painful urination or pelvic pain - Billing Disposition and Condition Condition: GOOD Disposition: Home
--- NOTE | 2018-01-19 17:37 | UC ---
- Progress Note Progress Note: please notify pt she has trich as well as BV treatment (flagyl is appropriate) Discharge - Sign-Out/Discharge Documenting (check all that apply): Post-Discharge Follow Up All imaging exams completed and their final reports reviewed: No Studies - Discharge Plan Condition: Good Disposition: HOME Prescriptions: metroNIDAZOLE [Flagyl 500 MG TAB] 500 mg PO BID #14 tab Patient Education Materials: Ceftriaxone (By injection), Chlamydia (ED), Sexually Transmitted Diseases (ED) Referrals: Katja Best MD [Primary Care Provider] - Additional Instructions: - follow up care with [facility] - Do not have sexual activity until results are back from cultures obtained today - Go to ER with fever, chills, painful urination or pelvic pain - Billing Disposition and Condition Condition: GOOD Disposition: Home
== END 2018-01-18 10:30 | disposition home or self-care (01) ==
LOC: UCEAST 08:23
DX: Z20.2 Contact with and (suspected) exposure to infections with a predominantly sexual mode of transmission (principal); A59.01 Trichomonal vulvovaginitis; B96.89 Other specified bacterial agents as the cause of diseases classified elsewhere; Z88.1 Allergy status to other antibiotic agents; Z87.891 Personal history of nicotine dependence
CPT/HCPCS: 81003; 84702; 87480; 87491; 87510; 87591; 87661; 96372; 99212; A9270-GY; G0463; J0696

== ENCOUNTER 2018-04-11 08:12 | Emergency (ER) | payer SELFPAY ==
[2018-04-11 08:18] VITALS: BP 151/91
--- NOTE | 2018-04-11 08:20 | UC ---
Complaint Female HPI - HPI Summary HPI Summary: 22 yo female presents requesting STD testing. She tells me that about a month ago she had sexual intercourse with a new partner and during sex the condom broke. Over the last week has been having vaginal discharge. She has had chlamydia in the past and says this feels the same. She denies fever, chills, abdominal pain, dysuria, vaginal bleeding, or pelvic pain. - History Of Current Complaint Chief Complaint: UCSTDScreening Stated Complaint: STI TESTING Time Seen by Provider: 04/11/18 08:20 Hx Obtained From: Patient Hx Last Menstrual Period: 04/04/18 Onset/Duration: Gradual Onset Timing: Constant Severity Initially: Mild Severity Currently: Mild Pain Intensity: 4 Pain Scale Used: 0-10 Numeric - Allergies/Home Medications Allergies/Adverse Reactions: Allergies Allergy/AdvReac Type Severity Reaction Status Date / Time ciprofloxacin Allergy Rash Verified 04/11/18 08:18 Home Medications: Home Medications NK [No Home Medications Reported] 04/11/18 [History Confirmed 04/11/18] PMH/Surg Hx/FS Hx/Imm Hx - Additional Past Medical History Additional PMH: None Other History Of: Negative For: HIV, Hepatitis B, Hepatitis C, Anticoagulant Therapy - Surgical History Surgical History: None - Family History Known Family History: Positive: Hypertension Negative: Cardiac Disease - Social History Occupation: Employed Full-time Lives: With Family Alcohol Use: Occasionally Substance Use Type: None Substance Use Comment - Amount & Last Used: today Smoking Status (MU): Former Smoker Type: Cigarettes Amount Used/How Often: 1/4 PPD Length of Time of Smoking/Using Tobacco: 3 years Have You Smoked in the Last Year: Yes Household Exposure Type: Cigarettes Review of Systems All Other Systems Reviewed And Are Negative: Yes Constitutional: Positive: Negative Skin: Positive: Negative Respiratory: Positive: Negative Cardiovascular: Positive: Negative Genitourinary: Positive: Vaginal/Penile Discharge Motor: Positive: Negative Neurovascular: Positive: Negative Physical Exam - Summary Physical Exam Summary: GENERAL: NAD. WDWN. No pain distress. SKIN: No rashes, sores, lesions, or open wounds. NECK: Supple. Nontender. No lymphadenopathy. CHEST: CTAB. No r/r/w. No accessory muscle use. Breathing comfortably and in no distress. CV: RRR. Without m/r/g. Pulses intact. Cap refill <2seconds ABDOMEN: Soft. NTTP. No distention or guarding. No CVA tenderness. Bowel sounds present NEURO: Alert. PSYCH: Age appropriate behavior. Triage Information Reviewed: Yes Vital Signs: Initial Vital Signs Temp 99 F 04/11/18 08:14 Pulse 91 04/11/18 08:14 Resp 17 04/11/18 08:14 BP 151/91 04/11/18 08:14 Pulse Ox 100 04/11/18 08:14 Vital Signs Reviewed: Yes Complaint Female Dx - Course Course Of Treatment: Urine negative today. Urine was collected and will be sent for GC/C. She declined pelvic exam and further STD testing today. She was treated in the clinic with 1gm azithromycin and 250mg ceftriaxone for her symptoms. Will call her with GC/C results. Discussed that if these are negative, I would recommend she have a pelvic exam for further evaluation. Pt voiced understanding. - Differential Dx/Diagnosis Provider Diagnosis: Vaginal discharge, High risk sexual behavior Discharge - Sign-Out/Discharge Documenting (check all that apply): Patient Departure All imaging exams completed and their final reports reviewed: No Studies - Discharge Plan Condition: Stable Disposition: HOME Patient Education Materials: Chlamydia (ED) Referrals: Katja Best MD [Primary Care Provider] - Additional Instructions: If you develop a fever, shortness of breath, chest pain, new or worsening symptoms - please call your PCP or go to the ED. Your blood pressure was high at todays visit. Please see your primary provider within 4 weeks for recheck and re-evaluation. You were treated today and your results will return in 2-3 days - please call us to ask about your results. - Billing Disposition and Condition Condition: STABLE Disposition: Home - Attestation Statements Provider Attestation: Per institutional requirements, I have reviewed the chart, however, I was not consulted specifically or made aware of this patient by the midlevel provider. I did not personally evaluate, interact with , or disposition this patient.
[2018-04-11] MEDS ORDERED: Lidocaine 1% INJ* 10 MG/ML 30 ML SDV INJ ONE (08:24)
[2018-04-11] MEDS ORDERED: cefTRIAXone VIAL(*) 250 MG VIAL IM ONE (08:24)
[2018-04-11] MEDS ORDERED: Azithromycin TAB* 250 MG PO ONE (08:24)
[2018-04-11] MEDS ORDERED: Lidocaine 1%* 5 ML VIAL INJ ONE (08:35)
== END 2018-04-11 09:15 | disposition home or self-care (01) ==
LOC: UCEAST 08:12
DX: N89.8 Other specified noninflammatory disorders of vagina (principal); Z72.51 High risk heterosexual behavior; Z88.1 Allergy status to other antibiotic agents; Z87.891 Personal history of nicotine dependence
CPT/HCPCS: 84702; 87491; 87591; 96372; 99212; A9270-GY; G0463; J0696

== ENCOUNTER 2018-05-28 09:20 | Emergency (ER) | payer OTHER ==
[2018-05-28 09:28] VITALS: BP 146/95
--- NOTE | 2018-05-28 10:41 | UC ---
Throat Pain/Nasal Lex HPI - HPI Summary HPI Summary: 22 yo female presents with sore throat for the last 2 weeks getting progressively worse. Also over the last week she has been having intermittent urinary pressure and frequency. She has not been taking anything OTC for her symptoms. Is able to eat and drink without difficulty. Denies fever, chills, cough, SOB, abdominal pain, n/v, flank pain, or hematuria. She is still smoking daily. - History of Current Complaint Chief Complaint: UCGeneralIllness Stated Complaint: SORE THROAT Time Seen by Provider: 05/28/18 10:40 Hx Obtained From: Patient Hx Last Menstrual Period: 05/06/18 Onset/Duration: Gradual Onset Severity: Severe Pain Intensity: 9 Pain Scale Used: 0-10 Numeric - Allergies/Home Medications Allergies/Adverse Reactions: Allergies Allergy/AdvReac Type Severity Reaction Status Date / Time ciprofloxacin Allergy Rash Verified 05/28/18 09:28 PMH/Surg Hx/FS Hx/Imm Hx - Additional Past Medical History Additional PMH: None Other History Of: Negative For: HIV, Hepatitis B, Hepatitis C, Anticoagulant Therapy - Surgical History Surgical History: None - Family History Known Family History: Positive: Hypertension Negative: None, Cardiac Disease - Social History Occupation: Employed Full-time Lives: With Family Alcohol Use: Occasionally Substance Use Type: None Substance Use Comment - Amount & Last Used: today Smoking Status (MU): Light Every Day Tobacco Smoker Type: Cigarettes Amount Used/How Often: 1/4 PPD Length of Time of Smoking/Using Tobacco: 3 years Have You Smoked in the Last Year: Yes Household Exposure Type: Cigarettes Review of Systems All Other Systems Reviewed And Are Negative: Yes Constitutional: Positive: Negative Skin: Positive: Negative Eyes: Positive: Negative ENT: Positive: Sore Throat Respiratory: Positive: Negative Cardiovascular: Positive: Negative Gastrointestinal: Positive: Negative Genitourinary: Positive: Dysuria Neurological: Positive: Negative Psychological: Positive: Negative Physical Exam - Summary Physical Exam Summary: GENERAL: NAD. WDWN. No pain distress. SKIN: No rashes, sores, lesions, or open wounds. HEENT: Head: AT/NC Eyes: Conjunctiva clear without inflammation or discharge. Ears: Hearing grossly normal. TMs intact, no bulging, erythema, or edema. Nose: Nasal mucosa pink and moist. NTTP maxillary and frontal sinus. Throat: Posterior oropharynx moderate erythema and 2+ tonsillar enlargement. Mild diffuse white exudates. Uvula midline. No hoarse voice or muffled voice. NECK: Supple. TTP tonsillar LAD. CHEST: CTAB. No r/r/w. No accessory muscle use. Breathing comfortably and in no distress. CV: RRR. Without m/r/g. Pulses intact. Cap refill <2seconds ABDOMEN: Soft. NTTP. No CVA tenderness. Bowel sounds present NEURO: Alert. PSYCH: Age appropriate behavior. Triage Information Reviewed: Yes Vital Signs: Initial Vital Signs Temp 98 F 05/28/18 09:25 Pulse 83 05/28/18 09:25 Resp 17 05/28/18 09:25 BP 146/95 05/28/18 09:25 Pulse Ox 100 05/28/18 09:25 Laboratory Tests 05/28/18 05/28/18 11:09 11:28 POC Urine Color Yellow POC Urine Clarity Clear POC Urine pH 6.0 POC Ur Specif [place] 1.010 POC Urine Protein Negative POC Ur Glucose (UA) Negative POC Urine Ketones Negative POC Urine Blood Negative POC Urine Nitrite Positive A POC Urine Bilirubin Negative POC Urine Urobilinogen 0.2 POC U Leukocyte Esteras Negative Group A Strep Rapid Negative Vital Signs Reviewed: Yes Throat Pain/Nasal Course/Dx - Course Course Of Treatment: POC strep negative, however given her exam and progessively worsening symptoms - will tx with antibiotics at this time. UA with nitrites only - amoxicillin should cover for UTI as well. - Differential Dx/Diagnosis Provider Diagnosis: Pharyngitis, UTI (urinary tract infection) Discharge - Sign-Out/Discharge Documenting (check all that apply): Patient Departure All imaging exams completed and their final reports reviewed: No Studies - Discharge Plan Condition: Stable Disposition: HOME Prescriptions: Amoxicillin PO (*) [Amoxicillin 875 MG (*)] 875 mg PO BID #14 tab Patient Education Materials: Urinary Tract Infection in Women (DC), Pharyngitis (ED) Referrals: Katja Best MD [Primary Care Provider] - Additional Instructions: If you develop a fever, shortness of breath, chest pain, new or worsening symptoms - please call your PCP or go to the ED. Your blood pressure was high at todays visit. Please see your primary provider within 4 weeks for recheck and re-evaluation. - Billing Disposition and Condition Condition: STABLE Disposition: Home
== END 2018-05-28 11:40 | disposition home or self-care (01) ==
LOC: UCEAST 09:20
DX: J02.9 Acute pharyngitis, unspecified (principal); N39.0 Urinary tract infection, site not specified; F17.210 Nicotine dependence, cigarettes, uncomplicated; Z88.1 Allergy status to other antibiotic agents
CPT/HCPCS: 81003; 87086; 87651; 99212; G0463

== ENCOUNTER 2018-07-13 17:10 | Emergency (ER) | payer MEDICAID, OTHER ==
[2018-07-13 17:31] VITALS: BP 152/97
--- NOTE | 2018-07-13 17:39 | UC ---
Complaint Female HPI - HPI Summary HPI Summary: 22 yo female presents requesting STD testing. She tells me that she had unprotected intercourse about 3-4 weeks ago with a usual partner. About 1 week ago that partner called her and said that he was having discharge from his penis and that she should get checked. About 5 days ago pt began having vaginal discharge and burning with urination. She is unsure if her partner tested positive for anything. Her LMP was 1 month ago and she is due today or tomorrow for her period, no control. Denies fever, chills, abdominal pain, n/v, flank pain. - History Of Current Complaint Chief Complaint: UCGU Stated Complaint: STD TESTING Time Seen by Provider: 07/13/18 17:38 Hx Obtained From: Patient Hx Last Menstrual Period: 06/15/18 Onset/Duration: Sudden Onset Timing: Constant Severity Currently: None Pain Intensity: 0 - Allergies/Home Medications Allergies/Adverse Reactions: Allergies Allergy/AdvReac Type Severity Reaction Status Date / Time ciprofloxacin Allergy Rash Verified 07/13/18 17:30 PMH/Surg Hx/FS Hx/Imm Hx - Additional Past Medical History Additional PMH: None Other History Of: Negative For: HIV, Hepatitis B, Hepatitis C, Anticoagulant Therapy - Surgical History Surgical History: None - Family History Known Family History: Positive: Hypertension Negative: None, Cardiac Disease - Social History Occupation: Employed Full-time Lives: With Family Alcohol Use: Occasionally Substance Use Type: Marijuana Substance Use Comment - Amount & Last Used: daily Smoking Status (MU): Former Smoker Type: Cigarettes Amount Used/How Often: 1/4 PPD Length of Time of Smoking/Using Tobacco: 3 years Have You Smoked in the Last Year: Yes Household Exposure Type: Cigarettes Review of Systems All Other Systems Reviewed And Are Negative: Yes Constitutional: Positive: Negative Skin: Positive: Negative Respiratory: Positive: Negative Cardiovascular: Positive: Negative Gastrointestinal: Positive: Negative Genitourinary: Positive: Dysuria, Vaginal/Penile Discharge Neurovascular: Positive: Negative Neurological: Positive: Negative Psychological: Positive: Negative Physical Exam - Summary Physical Exam Summary: GENERAL: NAD. WDWN. No pain distress. SKIN: No rashes, sores, lesions, or open wounds. NECK: Supple. Nontender. No lymphadenopathy. CHEST: CTAB. No r/r/w. No accessory muscle use. Breathing comfortably and in no distress. CV: RRR. Without m/r/g. Pulses intact. Cap refill <2seconds ABDOMEN: Soft. NTTP. No distention or guarding. No CVA tenderness. Bowel sounds present NEURO: Alert. PSYCH: Age appropriate behavior. Triage Information Reviewed: Yes Vital Signs: Initial Vital Signs Temp 97.5 F 07/13/18 17:24 Pulse 86 07/13/18 17:24 Resp 18 07/13/18 17:24 BP 152/97 07/13/18 17:24 Pulse Ox 100 07/13/18 17:24 Laboratory Tests 07/13/18 07/13/18 17:51 17:58 POC Urine Color Dark yellow POC Urine Clarity Cloudy POC Urine pH 6.0 POC Ur Specif [place] 1.025 POC Urine Protein 1+ A POC Ur Glucose (UA) Negative POC Urine Ketones Negative POC Urine Blood Trace-intact A POC Urine Nitrite Positive A POC Urine Bilirubin Negative POC Urine Urobilinogen 0.2 POC U Leukocyte Esteras 3+ A POC Ur Test Negative Vital Signs Reviewed: Yes Complaint Female Dx - Course Course Of Treatment: Pt declined pelvic exam today. UA with sign of infection. Will send urine for GC /C. She declined further STD testing today. She was treated in the clinic with Ceftriaxone 250mg and Azithromycin 1gm. Rx for macrobid for UTI - Differential Dx/Diagnosis Provider Diagnosis: UTI (urinary tract infection), Vaginal discharge Discharge - Sign-Out/Discharge Documenting (check all that apply): Patient Departure All imaging exams completed and their final reports reviewed: No Studies - Discharge Plan Condition: Stable Disposition: HOME Prescriptions: Nitrofurantoin Monohyd/M-Cryst [Macrobid 100 mg Capsule] 100 mg PO BID #10 cap Patient Education Materials: Chlamydia (ED), Gonorrhea (ED), Urinary Tract Infection in Women (ED) Referrals: Katja Best MD [Primary Care Provider] - Additional Instructions: If you develop a fever, shortness of breath, chest pain, new or worsening symptoms - please call your PCP or go to the ED. Your blood pressure was high at todays visit. Please see your primary provider within 4 weeks for recheck and re-evaluation. You were treated for Chlamydia and Gonorrhea today at the clinic. We should have results in 2-3 days of your urine test. A prescription was sent to your pharmacy (Macrobid) for your UTI. - Billing Disposition and Condition Condition: STABLE Disposition: Home
[2018-07-13] MEDS ORDERED: Azithromycin TAB* 250 MG PO ONE (17:57)
[2018-07-13] MEDS ORDERED: Lidocaine 1%* 5 ML VIAL INJ ONE (17:57)
[2018-07-13] MEDS ORDERED: cefTRIAXone VIAL(*) 250 MG VIAL IM ONE (17:57)
[2018-07-15 12:44] LABS: Neisseria gonorrhoeae (GC) RNA Negative (Negative)
== END 2018-07-13 18:30 | disposition home or self-care (01) ==
LOC: UCEAST 17:10
DX: Z88.1 Allergy status to other antibiotic agents (principal); Z87.891 Personal history of nicotine dependence; N39.0 Urinary tract infection, site not specified; N89.8 Other specified noninflammatory disorders of vagina
CPT/HCPCS: 81003; 84702; 87077; 87086; 87186; 87491; 87591; 96372; 99212; A9270-GY; G0463; J0696

== ENCOUNTER 2018-11-22 10:49 | Emergency (ER) | payer OTHER ==
[2018-11-22 10:57] VITALS: BP 140/88
--- NOTE | 2018-11-22 11:21 | UC ---
Throat Pain/Nasal Lex HPI - HPI Summary HPI Summary: 23-year-old woman comes in with a chief complaint of sore throat for 5 days. Hurts when she swallows. Less pain when she doesn't swallow. She has been able to drink but it hurts. Does not feel any airway compromise. She had a negative strep test yesterday. She does feel fatigued. - History of Current Complaint Chief Complaint: UCGeneralIllness Stated Complaint: SORE THROAT Time Seen by Provider: 11/22/18 10:59 Hx Last Menstrual Period: 11/14/18 Pain Intensity: 7 - Allergies/Home Medications Allergies/Adverse Reactions: Allergies Allergy/AdvReac Type Severity Reaction Status Date / Time ciprofloxacin Allergy Rash Verified 11/22/18 10:57 Home Medications: Home Medications Ibuprofen TAB* [Motrin TAB* 800 MG] 800 mg PO Q6H 11/22/18 [History Confirmed ] PMH/Surg Hx/FS Hx/Imm Hx Previously Healthy: Yes Other History Of: Negative For: HIV, Hepatitis B, Hepatitis C, Anticoagulant Therapy - Surgical History Surgical History: None - Family History Known Family History: Positive: Hypertension Negative: None, Cardiac Disease - Social History Alcohol Use: Occasionally Substance Use Type: Marijuana Substance Use Comment - Amount & Last Used: daily Smoking Status (MU): Former Smoker Type: Cigarettes Amount Used/How Often: 1/4 PPD Length of Time of Smoking/Using Tobacco: 3 years Have You Smoked in the Last Year: Yes Household Exposure Type: Cigarettes Review of Systems All Other Systems Reviewed And Are Negative: Yes Constitutional: Positive: Other - SEE HPI Skin: Positive: Negative Eyes: Positive: Negative ENT: Positive: Sore Throat Respiratory: Positive: Negative Cardiovascular: Positive: Negative Gastrointestinal: Positive: Negative Motor: Positive: Negative Neurovascular: Positive: Negative Musculoskeletal: Positive: Negative Neurological: Positive: Negative Psychological: Positive: Negative Is Patient Immunocompromised?: No Physical Exam Triage Information Reviewed: Yes Appearance: No Pain Distress, Well-Nourished, Ill-Appearing - MILD Vital Signs: Initial Vital Signs Temp 98.1 F 11/22/18 10:52 Pulse 80 11/22/18 10:52 Resp 18 11/22/18 10:52 BP 140/88 11/22/18 10:52 Pulse Ox 100 11/22/18 10:52 Vital Signs Reviewed: Yes Eye Exam: Normal Eyes: Positive: Conjunctiva Clear ENT: Positive: Pharyngeal erythema - NO PERITONSILLAR ABSCESS, TMs normal Neck: Positive: Supple Respiratory: Positive: Lungs clear, Normal breath sounds, No respiratory distress Cardiovascular: Positive: RRR Musculoskeletal: Positive: Strength Intact, ROM Intact Neurological: Positive: Alert, Muscle Tone Normal Psychological: Positive: Age Appropriate Behavior Skin Exam: Normal Throat Pain/Nasal Course/Dx - Course Course Of Treatment: DISCUSSED VIRAL VERSES BACTERIAL INFECTION AND THE ROLE OF ANTIBIOTICS. THE PATIENT PREFERS TO BE ON ANTIBIOTICS AT THIS TIME. - Differential Dx/Diagnosis Provider Diagnosis: Pharyngitis Discharge - Sign-Out/Discharge Documenting (check all that apply): Patient Departure All imaging exams completed and their final reports reviewed: No Studies - Discharge Plan Condition: Stable Disposition: HOME Prescriptions: Cephalexin CAP* [Keflex CAP*] 500 mg PO TID #30 cap Patient Education Materials: Pharyngitis (ED) Forms: *Work Release Referrals: Katja Best MD [Primary Care Provider] - Additional Instructions: FOLLOW UP WITH YOUR DOCTOR IF NOT COMPLETELY IMPROVED. GET RECHECKED SOONER IF YOUR CONDITION WORSENS OR ANY QUESTIONS OR CONCERNS. - Billing Disposition and Condition Condition: STABLE Disposition: Home
== END 2018-11-22 11:31 | disposition home or self-care (01) ==
LOC: UCEAST 10:49
DX: J02.9 Acute pharyngitis, unspecified (principal); Z87.891 Personal history of nicotine dependence
CPT/HCPCS: 87651; 99212; G0463

== ENCOUNTER 2019-02-01 13:35 | Emergency (ER) | payer OTHER ==
[2019-02-01 13:56] VITALS: BP 146/98
--- NOTE | 2019-02-01 15:06 | UC ---
Complaint Female HPI - HPI Summary HPI Summary: 23-year-old female presents with one-week history of burning with urination, urinary frequency, and malodorous urine. She has also noted some lower back pain and states she has had a couple of loose stools. States approximately one month ago she had vaginal intercourse and the condom broke. She is concerned for possible STI as she has tested positive for chlamydia in the past. Last menstrual period was 01/13/2019. Denies fever, chills, abdominal pain, nausea, vomiting, urgency, hematuria, vaginal discharge, lesions or ulcerations, or dyspareunia. - History Of Current Complaint Chief Complaint: [facility] Stated Complaint: PERSONAL Time Seen by Provider: 02/01/19 14:57 Hx Obtained From: Patient Hx Last Menstrual Period: 01/13/19 Pain Intensity: 0 - Allergies/Home Medications Allergies/Adverse Reactions: Allergies Allergy/AdvReac Type Severity Reaction Status Date / Time ciprofloxacin Allergy Rash Verified 02/01/19 13:55 Home Medications: Home Medications NK [No Home Medications Reported] 02/01/19 [History Confirmed 02/01/19] PMH/Surg Hx/FS Hx/Imm Hx Previously Healthy: Yes - Denies significant PMH Other History Of: Negative For: HIV, Hepatitis B, Hepatitis C, Anticoagulant Therapy - Surgical History Surgical History: None - Family History Known Family History: Positive: Hypertension - Social History Occupation: Employed Full-time Lives: With Family Alcohol Use: Occasionally Substance Use Type: Marijuana Substance Use Comment - Amount & Last Used: daily Smoking Status (MU): Former Smoker Type: Cigarettes Amount Used/How Often: 1/4 PPD Length of Time of Smoking/Using Tobacco: 3 years Have You Smoked in the Last Year: Yes Household Exposure Type: Cigarettes Review of Systems All Other Systems Reviewed And Are Negative: Yes Constitutional: Negative: Fever, Chills Skin: Negative: Rash Respiratory: Positive: Negative Cardiovascular: Positive: Negative Gastrointestinal: Positive: Other - Loose stool. Negative: Abdominal Pain, Vomiting, Nausea Genitourinary: Positive: Dysuria, Frequency, Vaginal/Penile Discharge. Negative : Hematuria, Urgency, Abnormal Bleeding Musculoskeletal: Positive: Negative Neurological: Positive: Negative Is Patient Immunocompromised?: No Physical Exam - Summary Physical Exam Summary: GENERAL APPEARANCE: Alert and cooperative obese adult female who appears to be in no acute distress. CARDIAC: Normal S1 and S2. No S3, S4 or murmurs. Rhythm is regular. There is no peripheral edema, cyanosis or pallor. Extremities are warm and well perfused. Capillary refill is less than 2 seconds. Peripheral pulses intact. LUNGS: Clear to auscultation without rales, rhonchi, wheezing or diminished breath sounds. ABDOMEN: Positive bowel sounds. Soft, nondistended, nontender. No guarding or rebound. No masses or hepatosplenomegally. No CVA tenderness. GENITOURINARY: Normal external genitalia without lesions. Small amount of thin white vaginal discharge. Normal cervix. Specimens obtained and sent. No CMT, adnexal tenderness or masses. MUSKULOSKELETAL: ROM intact to all extremities. No joint erythema or tenderness. Normal muscular development. Normal gait. SKIN: Skin normal color, texture and turgor with no lesions or eruptions. Triage Information Reviewed: Yes Vital Signs: Initial Vital Signs Temp 97.3 F 02/01/19 13:53 Pulse 77 02/01/19 13:53 Resp 18 02/01/19 13:53 BP 146/98 02/01/19 13:53 Pulse Ox 100 02/01/19 13:53 Vital Signs Reviewed: Yes Complaint Female Dx - Course Course Of Treatment: 23-year-old female presents with one-week history of burning with urination, urinary frequency, and malodorous urine. She has also noted some lower back pain and states she has had a couple of loose stools. States approximately one month ago she had vaginal intercourse and the condom broke. She is concerned for possible STI as she has tested positive for chlamydia in the past. Last menstrual period was 01/13/2019. Denies fever, chills, abdominal pain, nausea, vomiting, urgency, hematuria, vaginal discharge, lesions or ulcerations, or dyspareunia. Afebrile. Vital signs stable. Patient had a soft nondistended abdomen without tenderness, no CVA tenderness, normal external genitalia, small amount of thin white vaginal discharge, normal cervix, no cervical motion tenderness or adnexal tenderness or masses. Specimens for gonorrhea, chlamydia , trichomonas, gardnerella, and yeast were obtained. Patient declined testing for HIV and syphilis. [id number] urinalysis showed no evidence of infection. Urine was negative. I discussed these findings with the patient. I have a low suspicion for STI at this time but offered patient prophylactic treatment versus directed therapy based on culture results and patient elected for the former. She was given ceftriaxone 250 mg IM and azithromycin 1000 mg PO pending culture results. I discussed the need for retesting in 2 weeks should there be gonorrhea or chlamydia come back positive as well as counseled her on safe sex practices. Patient is to follow-up with her primary care provider in 5 days if symptoms persist. Anticipatory guidance and warning symptoms were reviewed with the patient. Verbalizes understanding and agrees with plan of care. - Differential Dx/Diagnosis Differential Diagnosis/HQI/PQRI: Pelvic Inflammatory Disease, , Sexually Transmitted Disease, Urinary Tract Infection Provider Diagnosis: Dysuria Discharge ED - Sign-Out/Discharge Documenting (check all that apply): Patient Departure All imaging exams completed and their final reports reviewed: No Studies - Discharge Plan Condition: Stable Disposition: HOME Patient Education Materials: Sexually Transmitted Diseases (ED), Safe Sex (ED) , Dysuria (ED) Referrals: Katja Best MD [Primary Care Provider] - 5 Days Additional Instructions: The urine test that was performed in the clinic today showed no evidence of an urinary tract infection. The urine test was negative. We have sent specimens to test for possible gonorrhea, chlamydia, trichomonas, bacterial vaginosis, and/or a vaginal yeast infection. It may take up to 48 hours for these results. We will contact you if any of these are positive and/ or if we need to change her treatment plan. We did treat you today for a possible sexually transmitted infection. You received 2 different antibiotics including ceftriaxone 250 mg and azithromycin 1000 mg. Follow-up with your primary care provider in 5-7 days if symptoms persist. Seek immediate medical attention in the emergency room if you develop a fever greater than 100.5 F, has severe abdominal pain, persistent or projectile vomiting, blood in your stool, black tarry stools, or any worsening of symptoms. - Billing Disposition and Condition Condition: STABLE Disposition: Home - Attestation Statements Provider Attestation: Per institutional requirements, I have reviewed the chart, however, I was not consulted specifically or made aware of this patient by the midlevel provider. I did not personally evaluate, interact with , or disposition this patient.
[2019-02-01] MEDS ORDERED: Lidocaine 1% MPF ** 5 ML VIAL IM ONE (15:35)
[2019-02-01] MEDS ORDERED: cefTRIAXone VIAL(*) 250 MG VIAL IM ONE (15:35)
[2019-02-01] MEDS ORDERED: Azithromycin TAB* 250 MG PO ONE (15:35)
[2019-02-02 14:01] LABS: Chlamydia trachomatis NAA Negative (Negative); Neisseria gonorrhoeae (GC) NAA Negative (Negative)
--- NOTE | 2019-02-02 16:21 | UC ---
- Progress Note Progress Note: Vaginal DNA from February 01, 2019 comes back positive for Gardnerella. Is negative for Angelina. Patient was also negative for gonorrhea chlamydia and Trichomonas. Nursing to call patient inform her of the results; a prescription for Flagyl 500 mg by mouth twice a day for 7 days. Course/Dx - Diagnoses Provider Diagnoses: Dysuria Discharge ED - Sign-Out/Discharge Documenting (check all that apply): Patient Departure All imaging exams completed and their final reports reviewed: No Studies - Discharge Plan Condition: Stable Disposition: HOME Prescriptions: metroNIDAZOLE [Flagyl 500 MG TAB] 500 mg PO BID #14 tab Patient Education Materials: Sexually Transmitted Diseases (ED), Safe Sex (ED) , Dysuria (ED) Referrals: Katja Best MD [Primary Care Provider] - 5 Days Additional Instructions: The urine test that was performed in the clinic today showed no evidence of an urinary tract infection. The urine test was negative. We have sent specimens to test for possible gonorrhea, chlamydia, trichomonas, bacterial vaginosis, and/or a vaginal yeast infection. It may take up to 48 hours for these results. We will contact you if any of these are positive and/ or if we need to change her treatment plan. We did treat you today for a possible sexually transmitted infection. You received 2 different antibiotics including ceftriaxone 250 mg and azithromycin 1000 mg. Follow-up with your primary care provider in 5-7 days if symptoms persist. Seek immediate medical attention in the emergency room if you develop a fever greater than 100.5 F, has severe abdominal pain, persistent or projectile vomiting, blood in your stool, black tarry stools, or any worsening of symptoms. - Billing Disposition and Condition Condition: STABLE Disposition: Home
== END 2019-02-01 16:00 | disposition home or self-care (01) ==
LOC: UCEAST 13:35
DX: R30.0 Dysuria (principal); R35.0 Frequency of micturition; R19.5 Other fecal abnormalities; M54.5 Low back pain; Z88.1 Allergy status to other antibiotic agents; Z87.891 Personal history of nicotine dependence
CPT/HCPCS: 81003; 84702; 87480; 87491; 87510; 87591; 87661; 96372; 99212; A9270-GY; G0463; J0696